=== PATIENT | male | born 1965 | race Caucasian/White ===

== ENCOUNTER 2016-10-28 17:03 | Emergency (ER) | payer MEDICARE, OTHER | END 2016-10-28 19:20 | disposition home or self-care (01) | LOC: ER 17:03 | DX: T84.020A Dislocation of internal right hip prosthesis, initial encounter (principal); F41.9 Anxiety disorder, unspecified; F17.210 Nicotine dependence, cigarettes, uncomplicated; X50.0XXA Overexertion from strenuous movement or load, initial encounter | CPT/HCPCS: 73501-RT; 96361; 96374; 96375; J2704 ==

== ENCOUNTER 2016-11-16 16:18 | Emergency (ER) | payer MEDICARE, OTHER | END 2016-11-16 17:40 | disposition home or self-care (01) | LOC: ER 16:18 | DX: M25.551 Pain in right hip (principal); K50.90 Crohn's disease, unspecified, without complications; F41.9 Anxiety disorder, unspecified; F17.210 Nicotine dependence, cigarettes, uncomplicated; Z79.899 Other long term (current) drug therapy | CPT/HCPCS: 73502-RT ==